=== PATIENT | male | born 1980 | race Caucasian/White ===

== ENCOUNTER 2021-10-29 12:26 | Outpatient (CLI) | payer BC, SELFPAY ==
--- NOTE | 2021-10-29 | ECHO_ITS ---
Patient Info Name: Hong Vaughan Age: 41 years : 1980 Gender: Male Ht: 71 in Wt: 235 lbs BSA: 2.34 m2 HR: 80 bpm BP: 145 / 91 mmHg Heart Rhythm: Sinus Rhythm Exam Date: 10/29/2021 1:06 PM Exam Location: [facility] Patient Status: Outpatient Admit Date: 10/29/2021 Staff Ordering Physician: RUBY MCGHEE MD Strip Cleaner: Justin Villanueva RDCS, RT Attending Provider: RUBY MCGHEE MD Referring Physician: LITZY SIMS; Exam Type: CA echo doppler color flow Study Info Indications C80.1 - Malignant (primary) neoplasm, unspecified Complete two-dimensional, color flow and Doppler transthoracic echocardiogram is performed. Strain analysis performed. Summary 1. Complete two-dimensional, color flow and Doppler transthoracic echocardiogram is performed. 2. Normal left ventricular size and thickness with good contractility of all segments. No segmental wall motion abnormalities. The ejection fraction is calculated to be 59%. (visually it appears to be 60-65%). The global longitudinal strain is borderline low at -17%. Normal diastolic function. 3. No pulmonary hypertension, estimated pulmonary arterial systolic pressure is 34 mmHg. 4. There is mild pulmonic regurgitation. 5. Normal sinus rhythm. Left Ventricle Left ventricular chamber dimension is normal. Left ventricular systolic function is normal, estimated at Empty. There is no increased left ventricular wall thickness. Left ventricular septal wall motion is normal. The left ventricular diastolic function is normal. Global longitudinal strain is abnormal at 17 %. Right Ventricle Right ventricular chamber dimension is normal. Right ventricular systolic function is normal. Left Atria Left atrial chamber dimension is normal. Right Atria Right atrial chamber dimension is normal. Aortic Valve The aortic valve is trileaflet. There is no aortic valve sclerosis. There is no aortic valve stenosis. There is no aortic valve regurgitation. Pulmonic Valve The pulmonic valve is normal. There is no pulmonic valve stenosis. There is mild pulmonic regurgitation. Mitral Valve The mitral valve has normal leaflets. There is no mitral valve stenosis. There is no mitral valve regurgitation. Tricuspid Valve The tricuspid valve leaflets are normal. There is no significant tricuspid valve stenosis. There is trace tricuspid valve regurgitation. No pulmonary hypertension, estimated pulmonary arterial systolic pressure is 34 mmHg. Pericardium/Pleural The pericardium appears normal. There is no pericardial effusion. Inferior Vena Cava Normal inferior vena cava with >50% collapse upon inspiration consistent with Empty right atrial pressure, 10 mmHg. Aorta The aortic root size at the sinus of Valsalva is normal. The prox ascending aorta size is normal. Left Ventricular Outflow Tract Name Value Normal LVOT 2D LVOT Diameter 2.0 cm LVOT Doppler LVOT Peak Gradient 4 mmHg LVOT Mean Gradient 2 mmHg LVOT VTI 21 cm LVOT VTI/AV VTI Ra
== END 2021-10-29 12:27 | disposition home or self-care (01) ==
LOC: ANHCARD 12:28
PROVIDERS: PCP Physician Assistant
DX: Z91.89 Other specified personal risk factors, not elsewhere classified (principal); I37.1 Nonrheumatic pulmonary valve insufficiency
CPT/HCPCS: 93306

== ENCOUNTER 2023-05-05 00:45 | Emergency (ER) | payer BC, SELFPAY ==
[2023-05-05 00:47] VITALS: BP 145/90; PULSE 85; RESP 16; TEMP 36.3; O2SAT 100
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
[2023-05-05] MEDS: ERYTHROMYCIN OPHTH OINTMENT 1 GM TUBE 1 APPLIC EACH EYE (02:06)
== END 2023-05-05 02:07 | disposition home or self-care (01) ==
PROVIDERS: Emergency Provider Emergency Medicine; PCP Physician Assistant
DX: H10.9 Unspecified conjunctivitis (principal)
CPT/HCPCS: 99283; A9270

== ENCOUNTER → 2023-07-26 09:01 | Outpatient (CLI) | payer BC, SELFPAY ==
--- NOTE | ~2023-07-26 | US_ITS ---
EXAMINATION: US axilla LT DATE: 07/26/2023 09:14 INDICATION: Mass at the left axilla TECHNIQUE: Multiple grayscale and Doppler ultrasound images of the region of concern at the left axil la were obtained. COMPARISON: None FINDINGS: There is a 2.9 x 2.1 x 1.9 cm very hypoechoic mass with internal linear echogenic septations and well -defined smooth peripheral margins. There is posterior acoustic enhancement suggesting a complex flui d with appearance suggesting hematoma. Differential would include abscess in the appropriate clinical setting although there is no surrounding hyperemia to more specifically suggest this, ganglion cyst with synovitis or cystic neoplasm although there is no evident internal vascular flow on color Dopple r to elevate suspicion. IMPRESSION: 1. 2.9 x 2.1 x 1.9 cm complex fluid collection at the left axilla with differential as detailed above . Reviewed, dictated and finalized at location A. IMPRESSION: 1. 2.9 x 2.1 x 1.9 cm complex fluid collection at the left axilla with dusty lowry as detailed above.
== END ==
PROVIDERS: PCP Physician Assistant; Visit Provider Physician Assistant
DX: R22.32 Localized swelling, mass and lump, left upper limb (principal)
CPT/HCPCS: 76882